=== PATIENT | male | born 2000 | race African-American/Black ===

== ENCOUNTER → 2025-01-09 | Outpatient (CLI) | payer OTHER | LOC: M RAD 15:44 | DX: M79.601 Pain in right arm (principal) ==

== ENCOUNTER → 2025-01-21 | Outpatient (CLI) | payer OTHER | LOC: M RAD 16:02 | DX: M79.601 Pain in right arm (principal); S46.211A Strain of muscle, fascia and tendon of other parts of biceps, right arm, initial encounter; X58.XXXA Exposure to other specified factors, initial encounter; Y92.9 Unspecified place or not applicable; Y93.9 Activity, unspecified; Y99.9 Unspecified external cause status ==